=== PATIENT | male | born 1970 | race Caucasian/White ===

== ENCOUNTER 2020-06-04 15:35 | Emergency (ER) | payer SELFPAY ==
[~2020-06-04] VITALS: Ht 152.4 cm; Wt 63.0 kg
[~2020-06-04 15:35] MED LIST: HYDR-3165 PO; IBUP400T18 PO; NAPR-514 PO; PRED20TA PO; TRAM50TA PO
[2020-06-04 15:38] VITALS: BP 125/82
--- NOTE | 2020-06-04 16:29 | PHYS DOC ---
Past History Past Medical History: Other Additional Past Medical Histor: CP Past Surgical History: No Surgical History Alcohol Use: None Drug Use: None Adult General Chief Complaint Chief Complaint: LOWER EXT PAIN HPI HPI Patient is a 50 year old male who presents with L hip pain that radiates down his leg that started after he sit on a seatbelt for awhile. Denies any numbness or difficulty with gait. Review of Systems Review of Systems Negative other than noted Allergies Allergies Allergies Coded Allergies Type Severity Reaction Last Updated Verified No Known Drug Allergies 08/12/15 No Physical Exam Physical Exam General: Awake, alert, NAD. Well Nourished, well hydrated. Cooperative HEENT: Atraumatic, EOMI, PERRL, airway patent, moist oral mucosa Neck: Supple, trachea midline Respiratory: CTA bilaterally, normal effort, no wheezing/crackles CV: RRR, no murmur, cap refill <2 GI: Soft, nondistended, nontender, no masses MSK: No obvious deformities Skin: Warm, dry, intact Neuro: A&O x3, speech NL, sensory and motor grossly intact, no focal deficits, normal gait Psych: Normal affect, normal mood, not suicidal or homicidal Current Patient Data Vital Signs Vital Signs Date Time Temp Pulse Resp B/P (MAP) Pulse Ox O2 Delivery O2 Flow Rate FiO2 06/04/20 15:38 97.5 90 20 125/82 (96) 97 EKG EKG [] Radiology/Procedures Radiology/Procedures [] Course & Med Decision Making Course & Med Decision Making Pertinent Labs and Imaging studies reviewed. (See chart for details) Patient is a 50-year-old male who presents to the Emergency room with non- traumatic back and hip pain. Patient denies bowel incontinence, urinary retention, fever, numbness, weakness. On exam, patient does not have a neurologic deficits, saddle anesthesia, gait difficulty, signs of trauma, or wounds near area of pain. Patient does not have a history of cancer or prolonged steroid use. At this time, patient does not have any signs, symptoms, or risk factors of emergent causes of back pain making cauda equina, spinal abscess, transverse myelitis, fractures, and other causes of emergent back pain highly unlikely. At this time, patient does not need any further work up for their back pain and will be treated symptomatically. Patient's test results and vitals while in the ED were fully reviewed and discussed with the patient. Patient is stable and at this time does not need admission to the hospital. We have discussed strict return precautions and the importance of following up with their Primary Care Physician. Patient stated understanding and was given an opportunity to ask any questions. Patient is in agreement with plan. Dragon Disclaimer Dragon Disclaimer This electronic medical record was generated, in whole or in part, using a voice recognition dictation system. Departure Departure: Impression: Primary Impression: Sciatica Disposition: HOME/RESIDENCE PRIOR TO ADM Condition: STABLE Referrals: PCP,NO (PCP) Patient Instructions: TOMASZ Horowitz MD Jun 04, 2020 16:29
[2020-06-04] MEDS ORDERED: KETOROLAC 60 MG/2 ML VIAL. IM ONE (16:30)
[2020-06-04] MEDS ORDERED: DEXAMETHASONE SOD PHOS 10 MG/ML VIAL. PO ONE (16:30)
== END 2020-06-04 16:40 | disposition home or self-care (01) ==
LOC: ER 15:35
DX: M54.32 Sciatica, left side (principal)
CPT/HCPCS: 96372; 99283; J1100; J1885

== ENCOUNTER 2020-09-23 16:17 | Emergency (ER) | payer MEDICAID ==
[~2020-09-23] VITALS: Ht 152.4 cm; Wt 63.0 kg
[2020-09-23 16:17] VITALS: BP 125/82
--- NOTE | 2020-09-23 16:48 | PHYS DOC ---
Past History Past Medical History: Other Additional Past Medical Histor: CP, substance abuse (ANDRE ROSE APRN) Past Surgical History: No Surgical History (ANDRE ROSE APRN) Alcohol Use: None Drug Use: None (ANDRE ROSE APRN) Adult General Chief Complaint Chief Complaint: THUMB HPI HPI Patient is a 50-year-old male presents emergency department complaining of right thumb swelling. Patient states that 7 days ago he was working with a drill and ran the drill bit through his thumb tip. Patient states he had been trying to keep it clean rinsing it with soap and water and using peroxide daily. Patient states that his stomach becomes swollen and it is hard to move now. Patient denies any other physical injuries or any other physical complaints. Patient states his last tetanus shot was greater than 5 years ago. Patient denies taking crnu-hia-qkvjzvn or prescription medications at home, patient denies any allergies to medications, patient states he smokes cigarettes, as patient states he smokes meth daily or as often as he can get a hold of it, patient denies drinking alcohol. Patient states he is homeless, however he states he would be able to afford medications possibly. (ANDRE ROSE APRN) Review of Systems Review of Systems 14 body systems of review of systems have been reviewed. See HPI for pertinent positives and negative responses, otherwise all other systems are negative, nonpertinent or noncontributory. (ANDRE ROSE APRN) Allergies Allergies Allergies Coded Allergies Type Severity Reaction Last Updated Verified No Known Drug Allergies 08/12/15 No (ANDRE ROSE APRN) Physical Exam Physical Exam Constitutional: Well developed, well nourished, no acute distress, non-toxic appearance. [] HENT: Normocephalic, atraumatic, bilateral external ears normal, oropharynx moist, no oral exudates, nose normal. [] Eyes: PERRLA, EOMI, conjunctiva normal, no discharge. [] Neck: Normal range of motion, no tenderness, supple, no stridor. [] Cardiovascular:Heart rate regular rhythm, no murmur [] Lungs & Thorax: Bilateral breath sounds clear to auscultation [] Abdomen: Bowel sounds normal, soft, no tenderness, no masses, no pulsatile masses. [] Skin: Warm, dry, no erythema, no rash. Old healing puncture wound right thumb palmar aspect distal tip well-healing without drainage. Back: No tenderness, no CVA tenderness. [] Extremities: No tenderness, no cyanosis, no clubbing, ROM intact, no edema. Except for right thumb erythematous with swelling abscess to lateral aspect near distal phalangeal area without central punctum. Full passive range of motion with elicited pain, red streaking proximally to mid upper arm, no axillary lymphadenitis appreciated. 2+ radial pulse. Neurologic: Alert and oriented X 3, normal motor function, normal sensory function, no focal deficits noted. [] Psychologic: Affect normal, judgement normal, mood normal. [] (ANDRE ROSE APRN) Current Patient Data Vital Signs Vital Signs Date Time Temp Pulse Resp B/P (MAP) Pulse Ox O2 Delivery O2 Flow Rate FiO2 09/23/20 16:17 97.9 86 16 125/82 (96) 98 Room Air (ANDRE ROSE APRN) EKG EKG [] (ANDRE ROSE APRN) Radiology/Procedures Radiology/Procedures SEX: M EXAM STATUS: REG ER ORD. PHYSICIAN: ANDRE ROSE APRN REASON: RIGHT THUMB INFECTION, SUSPECT GAS GANGRENE VS OSTEOMYLETIS PROCEDURE: HAND RIGHT 3V 3 views the right hand dated 09/23/2020. No comparison available. Clinical indication: Right thumb infection. Evaluate for gas gangrene. FINDINGS: 3 views of the right hand show normal bony alignment. No displaced fracture. No periostitis or bone destruction. There is mild soft tissue swelling over the thenar eminence. No soft tissue gas or radiopaque foreign body. Mild degenerative change of the interphalangeal joints throughout. IMPRESSION: Soft tissue swelling with no apparent underlying acute bony abnormality or soft tissue gas. Electronically signed by: Andre Bernal MD (09/23/2020 6:02 PM) [id number] DICTATED AND SIGNED BY: ANDRE BERNAL MD DATE: 09/23/20 180 CC: ANDRE ROSE APRN; PCP,NO ~MTH0 0 (ANDRE ROSE APRN) Heart Score Risk Factors: Risk Factors: DM, Current or recent (<one month) smoker, HTN, HLP, family history of CAD, obesity. Risk Scores: Risk Factors: DM, Current or recent (<one month) smoker, HTN, HLP, family history of CAD, obesity. (ANDRE ROSE APRN) Course & Med Decision Making Course & Med Decision Making Pertinent Labs and Imaging studies reviewed. (See chart for details) 50-year-old male, vital signs reviewed, since emergency department with right thumb pain. Physical exam concerning for deep tissue infection, marked thumb swelling with red streaking proximally up to mid upper arm without axillary lymphadenopathy. Discussed with patient possibility of needing inpatient IV antibiotics, patient adamantly refuses inpatient recommendation, patient states he is homeless and has no one to watch his belongings as everything he owns is in a trailer/body attached to his bicycle. ED planning x-ray to rule out osteomyelitis/gas gangrene infection, IV vancomycin 1 g, 1 g Rocephin IV. See I&D note, patient will be given Bactrim DS twice daily x10 days prescription, discussed with and offered admission to patient, patient continues adamantly refuse admission related to he has no one to watch his personal prope rty as he is homeless. Patient states he understands the need for admission, patient states he will sign AMA form, discussed and reviewed with patient risk versus benefits of leaving the department AGAINST MEDICAL ADVICE and refusing admission, it is of my opinion the patient is alert and oriented x3, clinically sober, is able to make his own educated medical decisions, patient was given strict return to emergency department precautions and concerns, patient gave verbal understanding of these instructions as well as antibiotic instructions, patient signed AGAINST MEDICAL ADVICE form and left the department ambulatory without incident. (ANDRE ROSE APRN) Dragon Disclaimer Dragon Disclaimer This electronic medical record was generated, in whole or in part, using a voice recognition dictation system. (ANDRE ROSE APRN) Departure Departure: Impression: Primary Impression: Injury of thumb, right, superficial, infected Additional Impressions: Lymphangitis Left against medical advice Abscess of right thumb Disposition: 01 DC HOME SELF CARE/HOMELESS Condition: IMPROVED Referrals: PCP,NO (PCP) Patient Instructions: Abscess Additional Instructions: Please take antibiotic medication as directed, please return the emergency department for worsening symptoms or other concerns. We have discussed your infection, I am worried that it will become worse, I have recommended hospital admission for continual IV antibiotics until your symptoms improve, you have decided to leave the emergency department AGAINST MEDICAL ADVICE, again I encourage you to please return immediately if symptoms become worse. Patient does not wish to proceed with medical care recommended by DEL MICHAEL. Patient given information related to possible complications, up to and including , which could occur as a result of leaving the hospital at this time. Patient verbalizes understanding of risks involved due to leaving against medical advice. Patient has signed AMA form. EMERGENCY DEPARTMENT GENERAL DISCHARGE INSTRUCTIONS Thank you for coming to [facility] ([facility]) today and trusting us with you care. We trust that you had a positivie experience in our Emergency Department. If you wish to speak to the department management, you may call the director at [phone]. YOUR FOLLOW UP INSTRUCTIONS ARE FOLLOWS: 1. Do you have a private Doctor? If you do not have a private doctor, please ask for a resource list of physicians or clinics that may be able to assist you with follow up care. 2. The Emergency Physician has interpreted your x-rays. The X-Ray specialist will also review them. If there is a change in the findings, you will be notified in 48 hours when at all possible. 3. A lab test or culture has been done, your results will be reviewed and you will be notified if you need a change in treatment. ADDITIONAL INSTRUCTIONS AND INFORMATION: 1. Your care today has been supervised by a physician who is specially trained in emergency care. Many problems require more than one evaluation for a complete diagnosis and treatment. We recommend that you schedule your follow up appointment as recommended to ensure complete treatment of you illness or injury. If you are unable to obtain follow up care and continue to have a problem, or if your condition worsens, we recommend that you return to the ED. 2. We are not able to safely determine your condition over the phone nor are we able to give sound medical advice over the phone. For these safety reasons, if you call for medical advice we will ask you to come to the ED for further evaluation. 3. If you have any questions regarding these discharge instructions please call the ED at [phone]. SAFETY INFORMATION: In the interest of safety, wellness, and injury prevention; we encourage you to wear your sealbelt, if you smoke; quite smoking, and we encourage family to use a protective helmet for bicycling and other sporting events that present an increased risk for head injury. IF YOUR SYMPTOMS WORSEN OR NEW SYMPTOMS DEVELOP, OR YOU HAVE CONCERNS ABOUT YOUR CONDITION; OR IF YOUR CONDITION WORSENS WHILE YOU ARE WAITING FOR YOUR FOLLOW UP APPOIN TMENT; EITHER CONTACT YOUR PRIMARY CARE DOCTOR, THE PHYSICIAN WHOSE NAME AND NUMBER YOU WERE GIVEN, OR RETURN TO THE ED IMMEDIATELY. Scripts Sulfamethoxazole/Trimethoprim (BACTRIM DS TABLET) 1 Each Tablet 1 TAB PO BID for ABSCESS for 10 Days, #20 TAB 0 Refills Prov: ANDRE ROSE APRN 09/23/20 Incision and Drainage Indication: [INDICATION:] Abscess right Procedure: The patient was positioned appropriately and the skin over the incision site was prepped with 20 minutes soaking Betadine normal saline solution, scrubbed with surgical scrub brush. Local anesthesia was achieved with 2% lidocaine digital right thumb block using 5 cc. An incision was then made over the abscess, approximately 1 cc purulent material was expressed, cultured and sent to lab. There were no loculations. The drainage cavity was then cleansed with 240 cc pressurized normal saline, then dressed with Band-Aid by the nursing staff, the patients tetanus status is brought up-to-date today in the emergency department. The patient tolerated the procedure well. Complications: [COMPLICATIONS:] There were no complications. (ANDRE ROSE APRN) Attending Co-Sign Attending Co-Sign The patient was seen and interviewed as well as examined at the bedside. The c hutson was reviewed. The case was discussed. Agree with the plan of care. (MAUREEN JOHNSON MD) Problem Qualifiers Primary Impression: Injury of thumb, right, superficial, infected Encounter type: initial encounter Qualified Codes: S60.931A - Unspecified superficial injury of right thumb, initial encounter; L08.9 - Local infection of the skin and subcutaneous tissue, unspecified ANDRE ROSE APRN Sep 23, 2020 16:48 MAUREEN JOHNSON MD Sep 25, 2020 23:48
[2020-09-23] MEDS ORDERED: VANCOMYCIN 1 GM in IV NORMAL SALINE 250ML 250 ML IV ONE (17:00)
[2020-09-23] MEDS ORDERED: IV NORMAL SALINE 1,000ML 1,000 ML IV ONE (17:00)
[2020-09-23] MEDS ORDERED: IV NORMAL SALINE 50ML 50 ML ONE (17:06)
[2020-09-23] MEDS ORDERED: cefTRIAXone SODIUM 1 GM VIAL ONE (17:06)
[2020-09-23] MEDS ORDERED: DIPH,PERTUSS(ACELL),TET VAC/PF 0.5 ML SYRINGE. VAX IM ONE (17:15)
[2020-09-23] MEDS ORDERED: VANCOMYCIN 1.5 GM in IV NORMAL SALINE 500ML 500 ML IV ONE (17:30)
[2020-09-23 17:52] LABS: BASO # 0.1 x10^3/uL (0.0-0.2); BASO % 0 % (0-3); EOS # 0.1 x10^3/uL (0.0-0.7); EOS % 1 % (0-3); HEMATOCRIT 46.5 % (39.0-53.0); HEMOGLOBIN 15.7 g/dL (13.0-17.5); LYMPH # 2.2 x10^3/uL (1.0-4.8); LYMPH % 14 % (24-48); MEAN CORPUSCULAR HEMOGLOBIN 32 pg (25-35); MEAN CORPUSCULAR HGB CONC 34 g/dL (31-37); MEAN CORPUSCULAR VOLUME 95 fL (79-100); MONO # 1.3 x10^3/uL (0.0-1.1); MONO % 9 % (0-9); NEUT # 11.7 x10^3uL (1.8-7.7); NEUT % 76 % (31-73); PLATELET COUNT 214 x10^3/uL (140-400); RED BLOOD COUNT 4.91 x10^6/uL (4.30-5.70); RED CELL DISTRIBUTION WIDTH 13.1 % (11.5-14.5); WHITE BLOOD COUNT 15.3 x10^3/uL (4.0-11.0)
--- NOTE | 2020-09-23 18:05 | RAD ---
3 views the right hand dated 09/23/2020. No comparison available. Clinical indication: Right thumb infection. Evaluate for gas gangrene. FINDINGS: 3 views of the right hand show normal bony alignment. No displaced fracture. No periostitis or bone d estruction. There is mild soft tissue swelling over the thenar eminence. No soft tissue gas or radiop aque foreign body. Mild degenerative change of the interphalangeal joints throughout. IMPRESSION: Soft tissue swelling with no apparent underlying acute bony abnormality or soft tissue gas. Electronically signed by: Franko Gaxiola MD (09/23/2020 6:02 PM) [id number]
[2020-09-23 18:26] LABS: ALBUMIN 3.6 g/dL (3.4-5.0); CALCIUM 9.6 mg/dL (8.5-10.1); CREATININE 1.1 mg/dL (0.7-1.3); GFR 70.6; POTASSIUM 3.8 mmol/L (3.5-5.1); TOTAL BILIRUBIN 0.2 mg/dL (0.2-1.0); TOTAL PROTEIN 7.1 g/dL (6.4-8.2)
[2020-09-23 18:31] LABS: % EOS 3 % (0-5); % LYMPHS 12 % (24-48); % MONOS 7 % (0-10); % SEGS 78 % (35-66); PLT ESTIMATE ADEQUATE (ADEQUATE)
[2020-09-23] MEDS ORDERED: LIDOCAINE 2% 20 ML VIAL. IJ ONE (18:45)
[2020-09-23] MEDS ORDERED: HYDROcodone/APAP 5/325MG 1 TAB TABLET PO ONE (20:45)
[2020-09-23] MEDS ORDERED: SULF1TAB24 PO (20:47)
== END 2020-09-23 20:59 | disposition home or self-care (01) ==
LOC: ER 16:17
DX: S61.031A Puncture wound without foreign body of right thumb without damage to nail, initial encounter (principal); L08.9 Local infection of the skin and subcutaneous tissue, unspecified; I89.1 Lymphangitis; L02.511 Cutaneous abscess of right hand; W29.8XXA Contact with other powered hand tools and household machinery, initial encounter; Y93.89 Activity, other specified; Y92.89 Other specified places as the place of occurrence of the external cause; Y99.8 Other external cause status
CPT/HCPCS: 26010; 36415; 73130; 80053; 85007; 85025; 87040; 87070; 90471; 90715; 96365; 96366; 96367; 96375; 99284; J0696; J2001; J3010; J3370; J7030; J7040; 87077; 87186

== ENCOUNTER 2021-01-18 13:14 | Emergency (ER) | payer SELFPAY ==
[~2021-01-18] VITALS: Ht 162.6 cm; Wt 68.4 kg
[~2021-01-18 13:14] MED LIST changes: +SULF1TAB24 PO
--- NOTE | 2021-01-18 13:44 | EKG ---
[address] [address] Test Date: 2021-01-18 Test Time: 13:36:35 Pat Name: HEIDY REYES Department: Room: Gender: M Production Coordinator: GERRY : 1970 Requested By: CHIKIS SPANGLER Order Number: [id number] Reading MD: Measurements Intervals [place] Rate: 99 P: 56 IA: 140 QRS: 47 QRSD: 86 T: 28 QT: 336 QTc: 436 Interpretive Statements SINUS RHYTHM NORMAL ECG RI6.02 No previous ECG available for comparison
[2021-01-18] MEDS ORDERED: IV NORMAL SALINE 1,000ML 1,000 ML IV ONE (13:45)
--- NOTE | 2021-01-18 13:46 | PHYS DOC ---
Past History Past Medical History: Other Additional Past Medical Histor: CP, substance abuse (CHIKIS SPANGLER APRN) Past Surgical History: No Surgical History (CHIKIS SPANGLER APRN) Alcohol Use: None Drug Use: None (CHIKIS SPANGLER APRN) General Adult EDM: Chief Complaint: DIARRHEA HPI: HPI: Patient is a 50-year-old male who presents with headache, diarrhea. Patient states "I was at my probation office and started feeling like I was going to throw up". "My sergeant of officers told me to be seen by a doctor and bring back a note". Patient is reporting pain 1 out of 10. Patient denies taking anything for headache prior to arrival. Patient states that he had diarrhea one time today. Reports using methamphetamine a couple days ago. Denies nausea/vomiting, fever. Patient's only health history is cerebral palsy. (CHIKIS SPANGLER APRN) Review of Systems: Review of Systems: Constitutional: Denies fever or chills Eyes: Denies change in visual acuity HENT: Denies nasal congestion or sore throat Respiratory: Denies cough or shortness of breath Cardiovascular: Denies chest pain or edema GI: Denies abdominal pain, nausea, vomiting. Reports diarrhea : Denies dysuria Musculoskeletal: Denies back pain or joint pain Integument: Denies rash Neurologic: Reports headache, denies focal weakness or sensory changes Endocrine: Denies polyuria or polydipsia Lymphatic: Denies swollen glands Psychiatric: Denies depression or anxiety (CHIKIS SPANGLER APRN) Allergies: Allergies: Allergies Coded Allergies Type Severity Reaction Last Updated Verified No Known Drug Allergies 08/12/15 No (CHIKIS SPANGLER APRN) Physical Exam: PE: Constitutional: Well developed, well nourished, no acute distress, non-toxic appearance. HENT: bilateral external ears normal, no oral exudates, nose normal. Eyes: PERRLA, EOMI, conjunctiva normal, no discharge. Neck: Normal range of motion, no tenderness, supple, no stridor. Cardiovascular: Sinus tachycardia, no murmur Lungs & Thorax: Bilateral breath sounds clear to auscultation Abdomen: Bowel sounds normal, soft, no tenderness, no masses Skin: Warm, dry, no erythema, no rash. Back: No tenderness, no CVA tenderness. Extremities: No tenderness, no cyanosis, no clubbing, ROM intact, no edema. Neurologic: Alert and oriented X 3, normal motor function, normal sensory function, no focal deficits noted. Psychologic: Affect normal, judgement normal, mood normal. (CHIKIS SPANGLER APRN) EKG: EKG: [] (CHIKIS SPANGLER APRN) Radiology/Procedures: Radiology/Procedures: [] (CHIKIS SPANGLER APRN) Heart Score: C/O Chest Pain: No Risk Factors: Risk Factors: DM, Current or recent (<one month) smoker, HTN, HLP, family history of CAD, obesity. Risk Scores: Score 0 - 3: 2.5% MACE over next 6 weeks - Discharge Home Score 4 - 6: 20.3% MACE over next 6 weeks - Admit for Clinical Observation Score 7 - 10: 72.7% MACE over next 6 weeks - Early Invasive Strategies (CHIKIS SPANGLER APRN) Course & Med Decision Making: Course & Med Decision Making Pertinent Labs and Imaging studies reviewed. (See chart for details) [] 50-year-old male presents with headache, diarrhea. Patient given fluids for rehydration. Labs are unremarkable. Patient is denying any symptoms at this t true. Patient is requesting a note for his p.o. officer since he was unable to provide a UA today due to illness. Patient is hemodynamically stable. Instructed patient to follow-up with his PCP if symptoms continue. Patient is a appreciative and okay with discharge plan. (CHIKIS SPANGLER APRN) Dragon Disclaimer: Dragon Disclaimer: This electronic medical record was generated, in whole or in part, using a voice recognition dictation system. (CHIKIS SPANGLER APRN) Departure Departure: Impression: Primary Impression: Diarrhea Qualified Codes: R19.7 - Diarrhea, unspecified Disposition: HOME / SELF CARE / HOMELESS Condition: STABLE Referrals: PCP,NO (PCP) Patient Instructions: Diarrhea Additional Instructions: All of your lab work was unremarkable. Tylenol and ibuprofen at home for headache. Please make sure to push fluids to prevent dehydration. Please return to the emergency room with worsening symptoms or concerns. EMERGENCY DEPARTMENT GENERAL DISCHARGE INSTRUCTIONS Thank you for coming to [facility] ([facility]) today and trusting us with you care. We trust that you had a positivie experience in our Emergency Department. If you wish to speak to the department management, you may call the director at [phone]. YOUR FOLLOW UP INSTRUCTIONS ARE FOLLOWS: 1. Do you have a private Doctor? If you do not have a private doctor, please ask for a resource list of physicians or clinics that may be able to assist you with follow up care. 2. The Emergency Physician has interpreted your x-rays. The X-Ray specialist will also review them. If there is a change in the findings, you will be notified in 48 hours when at all possible. 3. A lab test or culture has been done, your results will be reviewed and you will be notified if you need a change in treatment. ADDITIONAL INSTRUCTIONS AND INFORMATION: 1. Your care today has been supervised by a physician who is specially trained in emergency care. Many problems require more than one evaluation for a complete diagnosis and treatment. We recommend that you schedule your follow up appointment as recommended to ensure complete treatment of you illness or injury. If you are unable to obtain follow up care and continue to have a problem, or if your condition worsens, we recommend that you return to the ED. 2. We are not able to safely determine your condition over the phone nor are we able to give sound medical advice over the phone. For these safety reasons, if you call for medical advice we will ask you to come to the ED for further evaluation. 3. If you have any questions regarding these discharge instructions please call the ED at [phone]. SAFETY INFORMATION: In the interest of safety, wellness, and injury prevention; we encourage you to wear your sealbelt, if you smoke; quite smoking, and we encourage family to use a protective helmet for bicycling and other sporting events that present an increased risk for head injury. IF YOUR SYMPTOMS WORSEN OR NEW SYMPTOMS DEVELOP, OR YOU HAVE CONCERNS ABOUT YOUR CONDITION; OR IF YOUR CONDITION WORSENS WHILE YOU ARE WAITING FOR YOUR FOLLOW UP APPOINTMENT; EITHER CONTACT YOUR PRIMARY CARE DOCTOR, THE PHYSICIAN WHOSE NAME AND NUMBER YOU WERE GIVEN, OR RETURN TO THE ED IMMEDIATELY. Attending Signature Attending Signature I have participated in the care of this patient and I have reviewed and agree with all pertinent clinical information above including history, exam, and recommendations. (YOUSIF ECHEVARRIA DO) CHIKIS SPANGLER APRN January 18, 2021 13:46 YOUSIF ECHEVARRIA DO January 18, 2021 17:04
[2021-01-18 14:02] LABS: BASO # 0.1 x10^3/uL (0.0-0.2); BASO % 1 % (0-3); EOS # 0.1 x10^3/uL (0.0-0.7); EOS % 1 % (0-3); HEMATOCRIT 45.2 % (39.0-53.0); HEMOGLOBIN 15.3 g/dL (13.0-17.5); LYMPH # 2.4 x10^3/uL (1.0-4.8); LYMPH % 28 % (24-48); MEAN CORPUSCULAR HEMOGLOBIN 33 pg (25-35); MEAN CORPUSCULAR HGB CONC 34 g/dL (31-37); MEAN CORPUSCULAR VOLUME 97 fL (79-100); MONO # 0.5 x10^3/uL (0.0-1.1); MONO % 6 % (0-9); NEUT # 5.5 x10^3uL (1.8-7.7); NEUT % 65 % (31-73); PLATELET COUNT 178 x10^3/uL (140-400); RED BLOOD COUNT 4.66 x10^6/uL (4.30-5.70); RED CELL DISTRIBUTION WIDTH 13.8 % (11.5-14.5); WHITE BLOOD COUNT 8.6 x10^3/uL (4.0-11.0)
[2021-01-18 14:11] LABS: CALCIUM 8.4 mg/dL (8.5-10.1); CREATININE 0.9 mg/dL (0.7-1.3); POTASSIUM 3.5 mmol/L (3.5-5.1)
[2021-01-18 15:00] VITALS: BP 114/56
[2021-01-18 15:40] LABS: BARBITURATES NEG (NEG); BENZODIAZEPINES NEG (NEG); CANNABINOIDS NEG (NEG); COCAINE NEG (NEG); METHADONE NEG (NEG); OPIATES NEG (NEG); PHENCYCLIDINE NEG (NEG)
[2021-01-18 15:53] LABS: AMPHETAMINE/METHAMPHETAMINE NEG (NEG)
[2021-01-18 15:54] LABS: CLARITY,URINE CLEAR; COLOR,URINE YELLOW
[2021-01-18 15:57] LABS: BILIRUBIN,URINE NEG (NEG); GLUCOSE,URINE NEG (NEG)
[2021-01-18 15:58] LABS: NITRITE,URINE NEG (NEG); RBC,URINE RARE /HPF (0-2); UROBILINOGEN,URINE 0.2 mg/dL (0.2 mg/dL)
[2021-01-18 15:59] LABS: BACTERIA,URINE 0 /HPF (0-FEW); SQUAMOUS EPITHELIAL CELL,UR OCC /LPF
== END 2021-01-18 16:04 | disposition home or self-care (01) ==
LOC: ER 13:14
DX: R19.7 Diarrhea, unspecified (principal); R51.9 Headache, unspecified; F15.90 Other stimulant use, unspecified, uncomplicated
CPT/HCPCS: 36415; 80048; 80307; 81001; 85025; 93005; 96360; 99284; J7030

== ENCOUNTER 2021-11-17 20:32 | Emergency (ER) | payer MEDICAID ==
[~2021-11-17] VITALS: Ht 149.9 cm; Wt 67.8 kg
--- NOTE | 2021-11-17 20:40 | PHYS DOC ---
Past History Past Medical History: Other Additional Past Medical Histor: cerebral palsey, carpel tunnel Past Surgical History: No Surgical History Alcohol Use: None Drug Use: None Adult General HPI HPI Patient is a 51-year-old male who presents with finger laceration that occurred when he was opening a can of food, few hours before coming to the emergency department. States he is not up-to-date on his tetanus. Denies any other injuries. Review of Systems Review of Systems Review of systems otherwise unremarkable except noted in HPI Allergies Allergies Allergies Coded Allergies Type Severity Reaction Last Updated Verified No Known Drug Allergies 01/18/21 No Physical Exam Physical Exam Constitutional: Well developed, well nourished, no acute distress, non-toxic appearance. [] HENT: Normocephalic, atraumatic, Eyes: PERRLA, EOMI, conjunctiva normal, no discharge. [] Skin: Warm, dry, no erythema, no rash. [] Extremities: No tenderness, no cyanosis, no clubbing, ROM intact, no edema. [] Neurologic: Alert and oriented X 3, able to sit, stand and walk without issue, no focal deficits noted. [] Psychologic: Affect normal, judgement normal, mood normal. [] EKG EKG [] Radiology/Procedures Radiology/Procedures [] Heart Score C/O Chest Pain: No Risk Factors: Risk Factors: DM, Current or recent (<one month) smoker, HTN, HLP, family history of CAD, obesity. Risk Scores: Risk Factors: DM, Current or recent (<one month) smoker, HTN, HLP, family history of CAD, obesity. Course & Med Decision Making Course & Med Decision Making Patient is a 51-year-old male who presents with finger laceration Vital signs not concerning. Physical exam noted above. Wound cleaned. Given Tylenol and ibuprofen. Updated tetanus. Started on antibiotics in the ED. Wound 1.5 cm, linear across second right digit in between PIP and DIP, bleeding controlled. Topical lidocaine placed for anesthesia. Anesthesia achieved. 3 sutures of 4-0 Ethilon placed successfully. Washed again. Bandaged. Given wound care materials and education for home. Advised to follow-up in 5 to 7 days with primary care physician for wound check and suture removal. Advised he could come back to the emergency department if unable to get into her primary care physician. Gave return precautions to the ED. Patient grateful, verbalized understanding and agreed with plan of discharge for [] Estuardo Disclaimer Dragon Disclaimer This electronic medical record was generated, in whole or in part, using a voice recognition dictation system. Departure Departure: Impression: Primary Impression: Finger laceration Disposition: HOME / SELF CARE / HOMELESS Condition: STABLE Referrals: PCP,NO (PCP) CLINT IZAGUIRRE MD Patient Instructions: Fingertip Laceration, Laceration Care, Adult Additional Instructions: Thank you for coming into the emergency department tonight and allowing us to take care of you. Please read the attached information carefully to go over things we discussed. You can use Tylenol, ibuprofen and ice as needed at home for symptom control. Please keep your wound clean, dry and bandaged. You can take the bandage off daily, and wash with warm soapy water gently, dry and replace your bandage. Please follow-up with the primary care physician in 5 to 7 days for a wound check and suture removal. If you cannot get into a primary care physician you can come back to the emergency department. Please take your antibiotics as prescribed and until gone. Please come back with new or concerning symptoms as discussed. Scripts Cephalexin (KEFLEX) 500 Mg Capsule 1 CAP PO TID for wound for 3 Days, #9 CAP Prov: RAS ESCALANTE MD 11/17/21 RAS ESCALANTE MD Nov 17, 2021 20:40
[2021-11-17] MEDS ORDERED: CEPHALEXIN 250 MG CAPSULE PO ONE (21:00)
[2021-11-17] MEDS ORDERED: LIDOCAINE/EPI/TETRACAINE TOPICAL GEL 3 ML. TP ONE (21:00)
[2021-11-17] MEDS ORDERED: IBUPROFEN 600 MG TABLET. PO ONE (21:00)
[2021-11-17] MEDS ORDERED: ACETAMINOPHEN 500 MG TABLET PO ONE (21:00)
[2021-11-17] MEDS ORDERED: CEPH500C PO (21:04)
[2021-11-17] MEDS ORDERED: DIPHTH,PERTUSS(ACELL),TET TOX 0.5 ML DISP.SYRIN. VAX IM ONE ×2 (21:07→21:30)
[2021-11-17 21:35] VITALS: BP 129/69
[2021-11-17] MEDS ORDERED: CEPHALEXIN 250MG 4CAPSULE STARTPACK. PO ONE ×2 (21:46→22:00)
== END 2021-11-17 21:48 | disposition home or self-care (01) ==
LOC: ER 20:32
DX: S61.210A Laceration without foreign body of right index finger without damage to nail, initial encounter (principal); W26.8XXA Contact with other sharp object(s), not elsewhere classified, initial encounter; Y93.89 Activity, other specified; Y92.89 Other specified places as the place of occurrence of the external cause; Y99.8 Other external cause status
CPT/HCPCS: 12001; 90471; 90715; 99284